=== PATIENT | male | born 1950 | race Caucasian/White ===

== ENCOUNTER 2017-07-07 18:58 | Emergency (ER) | payer MEDICARE, BC ==
[2017-07-07] MEDS ORDERED: Lidocaine 2% Jelly 10 ML Urojet MUCMEM ONE (19:48)
--- NOTE | 2017-07-07 19:55 | EDM.PDOC ---
ED HPI GENERAL MEDICAL PROBLEM - General Chief Complaint: Genitourinary Problem Stated Complaint: BIOPSY DONE ON PROSTATE BLADDER WONT EMPTY Time Seen by Provider: 07/07/17 19:40 Source of Information: Reports: Patient History Limitations: Reports: No Limitations - History of Present Illness INITIAL COMMENTS - FREE TEXT/NARRATIVE: 66-year-old male presents to the ED in acute urinary retention. Patient was seen by Dr. Smart urologist in [place] early this morning. He had 12 biopsies performed on his prostate due to elevated PSA to rule out cancer. Patient subtotally has not been able to void. He feels the strong urge to void and pass a few drops of either urine or blood. Right now he is very miserable be due to abdominal pain and cramps. Associated diffuse low back pain. Mild associated nausea. Unable to eat. No vomiting. Onset: Today Onset Date: 07/07/17 (Brent a biopsy performed at 0530 hrs. this morning in [facility].) Duration: Hour(s): (Has not been able to void since prostate biopsy was performed.) Location: Reports: Abdomen Quality: Reports: Ache (Diffuse lower abdominal pain with distention up to the umbilicus.), Other Severity: Severe (Intermittent sharp stabbing cramping colicky pain.) Improves with: Reports: None Worsens with: Reports: None Context: Reports: Other (Prostate biopsy performed earlier today.). Denies: Activity, Exercise, Lifting, Sick Contact Associated Symptoms: Reports: Nausea/Vomiting. Denies: Confusion, Chest Pain, Cough, cough w sputum, Diaphoresis, Fever/Chills, Headaches, Malaise, Rash, Seizure, Shortness of Breath, Syncope (Nausea without) Treatments VARNISH REMOVER: Reports: Acetaminophen Bladder Pain Score (Numeric/FACES): 8 - Related Data Allergies Allergy/AdvReac Type Severity Reaction Status Date / Time ragweed pollen Allergy Sneezing Verified 07/07/17 19:17 Past Medical History Genitourinary History: Reports: Prostate Disorder, Other (See Below) Other Genitourinary History: prostate biopsy -- - Past Surgical History HEENT Surgical History: Reports: Cataract Surgery Musculoskeletal Surgical History: Reports: Other (See Below) Other Musculoskeletal Surgeries/Procedures:: back surgery about 1980 d/t crushed vertebrae Social & Family History - Family History Family Medical History: Noncontributory - Tobacco Use Smoking Status *Q: Never Smoker - Caffeine Use Caffeine Use: Reports: Coffee, Tea - Recreational Drug Use Recreational Drug Use: No - Living Situation & Occupation Living situation: Reports: Occupation: Employed ED ROS GENERAL - Review of Systems Review Of Systems: See Below Constitutional: Reports: Weakness, Decreased Appetite. Denies: Fever, Chills, Malaise HEENT: Reports: No Symptoms, Glasses Respiratory: Reports: No Symptoms Cardiovascular: Reports: No Symptoms Endocrine: Reports: No Symptoms GI/Abdominal: Reports: Abdominal Pain (See history present illness) : Reports: Urinary Retention Musculoskeletal: Reports: Back Pain Skin: Reports: No Symptoms (Associated with the abdominal pain) Neurological: Reports: No Symptoms ED EXAM, RENAL/ - Physical Exam Exam: See Below Exam Limited By: No Limitations General Appearance: Alert, WD/WN, Moderate Distress (In obvious discomfort with distended abdomen. First a standard lying down makes it worse.) Eye Exam: Bilateral Eye: Normal Inspection Throat/Mouth: Normal Inspection, Normal Oropharynx Head: Atraumatic, Normocephalic Neck: Normal Inspection, Supple, Non-Tender, Full Range of Motion. No: Lymphadenopathy (L), Lymphadenopathy (R) Respiratory/Chest: No Respiratory Distress, Lungs Clear, Normal Breath Sounds Cardiovascular: Normal Peripheral Pulses, Regular Rate, Rhythm, No Edema, No Murmur GI/Abdominal: Normal Bowel Sounds, Soft, Non-Tender, No Organomegaly, No Abnormal Bruit, Distended (Abdomen is firm and distended and dull dull to percussion up to the umbilicus. Ultrasound reveals distended urinary bladder up to the umbilicus.), Tender (Moderate tenderness suprapubically up to the umbilicus.). No: Rigid, Rebound (Male) Exam: No Hernia, Other (Mild amount of blood noted at the usual meatus.) Back Exam: Normal Inspection, Full Range of Motion Extremities: Normal Inspection, Normal Range of Motion, Non-Tender, No Pedal Edema Neurological: Alert, Oriented, CN II-XII Intact, Normal Cognition Psychiatric: Normal Affect, Normal Mood Skin Exam: Warm, Dry, Intact, Normal Color, No Rash Course - Vital Signs Last Recorded V/S: Last Vital Signs Temp 36.6 C 07/07/17 19: Pulse 89 07/07/17 19:18 Resp 18 07/07/17 19:18 BP 184/106 H 07/07/17 19:18 Pulse Ox 97 07/07/17 19:18 - Orders/Labs/Meds Orders: Active Orders 24 hr Category Date Time Status Insert Nicole Catheter [Insert Urinary Catheter] [OM.PC] Care 07/07/17 20:00 Ordered Q24H Urinary Catheter Assessment [RC] ASDIRECTED Care 07/07/17 19:49 Active Meds: Medications Discontinued Medications Generic Name Dose Route Start Last Admin Trade Name Evelia PRN Reason Stop Dose Admin Levofloxacin 500 mg 07/07/17 20:34 07/07/17 21:15 Levaquin PO 07/07/17 20:35 500 mg ONETIME ONE Administration Lidocaine HCl 10 ml 07/07/17 19:48 07/07/17 19:55 Xylocaine 2% Jelly MUCMEM 07/07/17 19:49 10 ml ONETIME ONE Administration - Radiology Interpretation Free Text/Narrative:: 66-year-old male presents the ED with acute urinary retention following prostate biopsy performed earlier this morning in [place]. He has not voided since that time. Has a constant urge to need to void will pass a few drops of urine or blood. Abdominal examination reveals him to be distended and firm to palpation up to the umbilicus dullness to percussion. Abdominal ultrasound confirms this to be very full urinary bladder. Plan Nicole catheter to be placed with the use of Urojet. - Re-Assessments/Exams Free Text/Narrative Re-Assessment/Exam: 07/07/17 20:35: Drained approximately 1200 mils of kya-colored urine without any obvious blood clots. Plan is to leave the Nicole catheter in place until after his surgery on his shoulder is done on Friday this week. He is likely to go back into retention in particular prior to this. Suggest follow-up in the clinic next Friday to have the Nicole catheter removed. Swelling probably occurred from bleeding within the prostate tissue itself after biopsies this morning occluding the prostatic urethra. He did receive Levaquin 500 mg prophylactically this morning after procedure. I will send him home with another tablet from the ED to take first thing tomorrow morning. Departure - Departure Time of Disposition: 20:42 Disposition: Home, Self-Care 01 Condition: Fair Clinical Impression: Acute urinary retention - Discharge Information Instructions: Acute Urinary Retention, Male, [id number] Referrals: Jessika Moreno PA [Primary Care Provider] - Forms: ED Department Discharge Additional Instructions: Evaluation in the emergency room tonight in regards to inability to void since having prostate biopsy performed this morning. Examination quickly identified the anterior bladder was filled with urine clinically about 1200 mils on ultrasound. The catheter coud tip was therefore placed under local anesthetic. I advised his tube to remain in place until after your shoulder surgery is performed on Friday . high chance of going back into urinary retention after surgery on your shoulder. suggest leaving the catheter in until next Friday. Please phone and make an appointment to have it removed by her personal physician in the clinic on Friday. I will send you home with Levaquin 500 mg tablets retaken tomorrow morning to prevent any infections from occurring from multiple points mentation of the urinary tract this morning and again tonight. - My Orders Last 24 Hours: My Active Orders 07/07/17 19:49 Urinary Catheter Assessment [RC] ASDIRECTED 07/07/17 20:00 Insert Nicole Catheter [Insert Urinary Catheter] [OM.PC] Q24H - Assessment/Plan Last 24 Hours: My Active Orders 07/07/17 19:49 Urinary Catheter Assessment [RC] ASDIRECTED 07/07/17 20:00 Insert Nicole Catheter [Insert Urinary Catheter] [OM.PC] Q24H
[2017-07-07] MEDS ORDERED: Levofloxacin 250 MG Tab PO ONE (20:34)
== END 2017-07-07 21:15 | disposition home or self-care (01) ==
LOC: JD.ED 18:58
DX: R33.9 Retention of urine, unspecified (principal); Z98.890 Other specified postprocedural states; Z91.048 Other nonmedicinal substance allergy status
CPT/HCPCS: 51702; 99283; A9270

== ENCOUNTER 2017-07-11 17:45 | Emergency (ER) | payer MEDICARE, BC | END 2017-07-11 18:48 | disposition home or self-care (01) | LOC: JD.ED 17:45 | DX: Z53.21 Procedure and treatment not carried out due to patient leaving prior to being seen by health care provider (principal) | CPT/HCPCS: 99283 ==

== ENCOUNTER 2018-05-19 11:55 | Emergency (ER) | payer BC, MEDICARE ==
--- NOTE | 2018-05-19 13:34 | CT ---
CT abdomen and pelvis Technique: Multiple axial sections were obtained from above the dome of the diaphragm inferiorly through the pubic symphysis. Intravenous and oral contrast has not been given. Comparison: No prior CT imaging is available. Findings: Small nonobstructing calculus is noted within the upper left kidney measuring approximately 3 mm. 3 nonobstructing calculi are noted within the right kidney with largest right-sided calculus measuring 7 mm. No ureteral dilatation or ureteral stone is seen. Small portion of the visualized lung bases shows a small nodule within the left lung base measuring 3.5 mm. Second small subpleural nodule is noted within the right middle lobe measuring 3.8 mm. These nodules are most likely incidental. Cyst is noted within the left lobe of the liver measuring 5.6 cm in greatest dimension. Smaller cyst is noted within the anterior right lobe of the liver measuring 8 mm in size. No additional abnormality is seen within the liver. Small hiatal hernia is noted. Spleen appears within normal limits. Adrenal glands show no nodule. Pancreas is within normal limits. Gallbladder contains no calcified gallstones. Aorta shows atherosclerotic change without aneurysm. No retroperitoneal adenopathy or mesenteric abnormalities are seen. Appendix is seen which is normal in size. Prostate gland is slightly enlarged. No pelvic mass or adenopathy is seen. No free fluid or inflammatory change is identified. Bone window settings were reviewed which shows slight degenerative change scattered within the spine. Nothing acute is appreciated on bone window settings. Impression: 1. 2 small nodules within the lung bases believed to be incidental. 2. 2 cysts within the liver. 3. Nonobstructing calculi within both kidneys. No ureteral dilatation or ureteral stone is seen. 4. Other incidental findings as noted above. Diagnostic code #2
[2018-05-19] MEDS ORDERED: Levofloxacin 500 MG Tab PO ONE (14:04)
--- NOTE | 2018-05-19 14:12 | EDM.PDOC ---
ED HPI GENERAL MEDICAL PROBLEM - General Chief Complaint: Genitourinary Problem Stated Complaint: FREQUENT URINATION Time Seen by Provider: 05/19/18 12:10 Source of Information: Reports: Patient History Limitations: Reports: No Limitations - History of Present Illness INITIAL COMMENTS - FREE TEXT/NARRATIVE: 67 year old male is sent over from the walk-in clinic for concerns of urinary retention. Symptoms started over the last 1-2 days. States Friday night he was up urinating every 2 hours. He is reporting increased urinary frequency, urinary urgency, dysuria, feeling of incomplete bladder emptying and suprapubic discomfort. Denies any hematuria, diarrhea, constipation or abdominal pain. Reports a history of chronic low back pain, does not seem to be worse than normal. Reports a history of prostate hypertrophy, kidney stones and urinary retention. Currently on flomax. Walk-in clinic provider called report. Concerned about urinary retention. Feels he needs a bladder scan and they do not have the capabilities to preform that at the walk-in clinic. Patient had labs including a CMP, CBC and UA done at the clinic, results are with the patient. - Related Data Allergies Allergy/AdvReac Type Severity Reaction Status Date / Time ragweed pollen Allergy Sneezing Verified 05/19/18 12:01 Home Meds: Home Meds Finasteride 5 mg PO DAILY 05/19/18 [History] Montelukast [Singulair] 10 mg PO DAILY 05/19/18 [History] Rosuvastatin [Crestor] 5 mg PO DAILY 05/19/18 [History] Tamsulosin HCl [Flomax] 0.4 mg PO BID 05/19/18 [History] levoFLOXacin [Levaquin] 500 mg PO DAILY #13 tab 05/19/18 [Rx] Past Medical History Genitourinary History: Reports: Prostate Disorder, Other (See Below) Other Genitourinary History: prostate biopsy -- - Past Surgical History HEENT Surgical History: Reports: Cataract Surgery Musculoskeletal Surgical History: Reports: Other (See Below) Other Musculoskeletal Surgeries/Procedures:: back surgery about 1979 d/t crushed vertebrae Social & Family History - Family History Family Medical History: Noncontributory - Tobacco Use Smoking Status *Q: Never Smoker - Caffeine Use Caffeine Use: Reports: Coffee - Recreational Drug Use Recreational Drug Use: No - Living Situation & Occupation Living situation: Reports: Occupation: Employed ED ROS GENERAL - Review of Systems Review Of Systems: See Below Constitutional: Denies: Fever, Chills GI/Abdominal: Denies: Abdominal Pain, Constipation, Diarrhea : Reports: Dysuria, Frequency, Urgency. Denies: Flank Pain, Hematuria Musculoskeletal: Reports: Back Pain (chronic, no change ) ED EXAM, RENAL/ - Physical Exam Exam: See Below Exam Limited By: No Limitations General Appearance: Alert, WD/WN, No Apparent Distress Respiratory/Chest: No Respiratory Distress, Lungs Clear, Normal Breath Sounds Cardiovascular: Normal Peripheral Pulses, Regular Rate, Rhythm, No Murmur GI/Abdominal: Normal Bowel Sounds, Soft, Tender (suprapubic tenderness) (Male) Exam: Deferred (due to concerns over prostatitis) Neurological: Alert, Oriented, Normal Cognition Psychiatric: Normal Affect, Normal Mood Skin Exam: Warm, Dry, Normal Color Course - Vital Signs Last Recorded V/S: Last Vital Signs Temp 97.0 F 05/19/18 12:02 Pulse 71 05/19/18 12:02 Resp 16 05/19/18 12:02 BP 178/90 H 05/19/18 12:02 Pulse Ox 98 05/19/18 12:02 - Orders/Labs/Meds Meds: Medications Discontinued Medications Generic Name Dose Route Start Last Admin Trade Name Freq PRN Reason Stop Dose Admin Levofloxacin 500 mg 05/19/18 14:04 05/19/18 14:09 Levaquin PO 05/19/18 14:05 500 mg ONETIME ONE Administration - Radiology Interpretation Free Text/Narrative:: CT abdomen and pelvis Technique: Multiple axial sections were obtained from above the dome of the diaphragm inferiorly through the pubic symphysis. Intravenous and oral contrast has not been given. Comparison: No prior CT imaging is available. Findings: Small nonobstructing calculus is noted within the upper left kidney measuring approximately 3 mm. 3 nonobstructing calculi are noted within the right kidney with largest right-sided calculus measuring 7 mm. No ureteral dilatation or ureteral stone is seen. Small portion of the visualized lung bases shows a small nodule within the left lung base measuring 3.5 mm. Second small subpleural nodule is noted within the right middle lobe measuring 3.8 mm. These nodules are most likely incidental. Cyst is noted within the left lobe of the liver measuring 5.6 cm in greatest dimension. Smaller cyst is noted within the anterior right lobe of the liver measuring 8 mm in size. No additional abnormality is seen within the liver. Small hiatal hernia is noted. Spleen appears within normal limits. Adrenal glands show no nodule. Pancreas is within normal limits. Gallbladder contains no calcified gallstones. Aorta shows atherosclerotic change without aneurysm. No retroperitoneal adenopathy or mesenteric abnormalities are seen. Appendix is seen which is normal in size. Prostate gland is slightly enlarged. No pelvic mass or adenopathy is seen. No free fluid or inflammatory change is identified. Bone window settings were reviewed which shows slight degenerative change scattered within the spine. Nothing acute is appreciated on bone window settings. Impression: 1. 2 small nodules within the lung bases believed to be incidental. 2. 2 cysts within the liver. 3. Nonobstructing calculi within both kidneys. No ureteral dilatation or ureteral stone is seen. 4. Other incidental findings as noted above. - Re-Assessments/Exams Free Text/Narrative Re-Assessment/Exam: 05/19/18 14:06 Bladder scan showed no urine in bladder. Patient has been able to urinate on his own. No indication for catheter at this time. Labs sent over from [place] include a UA, which is unremarkable for a UTI, and a BMP, which shows a creatinine of 1.0 and a slightly elevated glucose of 105. CT obtained to rule out bladder stone and eval for protatis. I have reviewed the imaging with the patient. I am highly suspicious the patient has prostatitis causing his symptoms today. Will treat with antibiotics and close follow-u pin the clinic. Discharge instructions as documented. Departure - Departure Time of Disposition: 14:12 Disposition: Home, Self-Care 01 Condition: Fair Clinical Impression: Prostatitis - Discharge Information *PRESCRIPTION DRUG MONITORING PROGRAM REVIEWED*: No *COPY OF PRESCRIPTION DRUG MONITORING REPORT IN PATIENT MADIE: No Prescriptions: levoFLOXacin [Levaquin] 500 mg PO DAILY #13 tab Instructions: Prostatitis, [id number] Referrals: Pat Moreno PA [Primary Care Provider] - Forms: ED Department Discharge Additional Instructions: Follow-up with your PCP next week for a recheck of your symptoms. Take the levaquin as prescribed, one tab PO daily. First dose given in the ER, start your prescription tomorrow. Drink plenty of fluids. May take OTC tylenol or motrin as needed for discomfort. Please return to the ER should your symptoms change or worsen.
== END 2018-05-19 14:24 | disposition home or self-care (01) ==
LOC: JD.ED 11:55
DX: N41.9 Inflammatory disease of prostate, unspecified (principal); Z91.048 Other nonmedicinal substance allergy status; Z79.899 Other long term (current) drug therapy
CPT/HCPCS: 74176; 99284; A9270

== ENCOUNTER 2021-02-21 11:53 | Emergency (ER) | payer MEDICARE, BC ==
[2021-02-21] MEDS ORDERED: Sodium Chloride 0.9% 10 ML Syringe FLUSH PRN (12:15)
[2021-02-21] MEDS ORDERED: Ondansetron 4 MG/2 ML SDV IVPUSH ONE (12:43)
[2021-02-21] MEDS ORDERED: Ketorolac 30 MG/ML SDV IVPUSH ONE (12:43)
[2021-02-21] MEDS ORDERED: Sodium Chloride 0.9% 1,000 ML IV STA (12:43)
[2021-02-21] MEDS ORDERED: HYDROmorphone 0.5 MG/0.5 ML Syringe IVPUSH ONE (12:43)
--- NOTE | 2021-02-21 13:38 | EDM.PDOC ---
ED HPI GENERAL MEDICAL PROBLEM - General Chief Complaint: Flank Pain Stated Complaint: BACK PAIN Time Seen by Provider: 02/21/21 12:07 Source of Information: Reports: Patient, RN Notes Reviewed History Limitations: Reports: No Limitations - History of Present Illness INITIAL COMMENTS - FREE TEXT/NARRATIVE: Patient is a 70-year-old male presenting to the emergency department with complaints of right flank pain. Reports are not a.m. this morning, the pain began. He then proceeded to mow his lawn thinking that it would improve, however it has been getting progressively worse. Reports nausea with no vomiting. He took Tylenol with no relief. He does have a history of kidney stones many years ago and thinks that this may feel similar to his previous episodes. Denies any obvious blood in his urine. He has had no fever or chills. Denies any known injuries to his back. Right Flank Pain Score (Numeric/FACES): 9 - Related Data Allergies Allergy/AdvReac Type Severity Reaction Status Date / Time ragweed pollen Allergy Sneezing Verified 05/19/18 12:01 Home Meds: Home Meds Finasteride 5 mg PO DAILY 05/19/18 [History] Montelukast [Singulair] 10 mg PO DAILY 05/19/18 [History] Rosuvastatin [Crestor] 5 mg PO DAILY 05/19/18 [History] Tamsulosin HCl [Flomax] 0.4 mg PO BID 05/19/18 [History] Cetirizine [ZyrTEC] 10 mg PO DAILY 02/21/21 [History] Hydrocodone/Acetaminophen [Hydrocodone-Acetamin 5-325 mg] 1 each PO Q4H PRN #20 tablet 02/21/21 [Rx] Losartan [Cozaar] 25 mg PO DAILY 02/21/21 [History] Ondansetron [Zofran ODT] 4 mg PO Q6H PRN #10 tab.dis 02/21/21 [Rx] Past Medical History Cardiovascular History: Reports: High Cholesterol, Hypertension Genitourinary History: Reports: Prostate Disorder, Other (See Below) Other Genitourinary History: prostate biopsy -- - Infectious Disease History Infectious Disease History: Reports: None - Past Surgical History HEENT Surgical History: Reports: Cataract Surgery GI Surgical History: Reports: Colonoscopy Musculoskeletal Surgical History: Reports: Other (See Below) Other Musculoskeletal Surgeries/Procedures:: back surgery about 1979 d/t crushed vertebrae Social & Family History - Family History Family Medical History: No Pertinent Family History - Tobacco Use Tobacco Use Status *Q: Never Tobacco User - Caffeine Use Caffeine Use: Reports: Coffee - Recreational Drug Use Recreational Drug Use: No - Living Situation & Occupation Living situation: Reports: Occupation: Employed ED ROS GENERAL - Review of Systems Review Of Systems: Comprehensive ROS is negative, except as noted in HPI. ED EXAM, RENAL/ - Physical Exam Exam: See Below Exam Limited By: No Limitations General Appearance: Alert, WD/WN, No Apparent Distress Respiratory/Chest: No Respiratory Distress, Lungs Clear, Normal Breath Sounds, No Accessory Muscle Use, Chest Non-Tender Cardiovascular: Normal Peripheral Pulses, Regular Rate, Rhythm, No Edema, No Gallop, No JVD, No Murmur, No Rub GI/Abdominal: Normal Bowel Sounds, Soft, Non-Tender, No Organomegaly, No Distention, No Abnormal Bruit, No Mass Back Exam: Normal Inspection, Full Range of Motion. No: CVA Tenderness (L), CVA Tenderness (R) Neurological: Alert, Oriented, CN II-XII Intact, Normal Cognition, Normal Gait, Normal Reflexes, No Motor/Sensory Deficits Psychiatric: Normal Affect, Normal Mood Skin Exam: Warm, Dry, Intact, Normal Color, No Rash Course - Vital Signs Last Recorded V/S: Last Vital Signs Temp 98.5 F 02/21/21 12:15 Pulse 58 L 02/21/21 12:15 Resp 20 02/21/21 12:15 BP 161/76 H 02/21/21 12:15 Pulse Ox 99 02/21/21 12:15 - Orders/Labs/Meds Orders: Active Orders 24 hr Category Date Time Status Peripheral IV Care [RC] . DIRECTED Care 02/21/21 12:15 Active Abdomen Pelvis wo Cont [CT] Stat Exams 02/21/21 12:43 Taken Sodium Chloride 0.9% [Normal Saline] 1,000 ml Med 02/21/21 12:43 Active IV NOW Sodium Chloride 0.9% [Saline Flush] Med 02/21/21 12:15 Active 10 ml FLUSH ASDIRECTED PRN Peripheral IV Insertion Adult [OM.PC] Stat Oth 02/21/21 12:15 Ordered Medication Orders Sodium Chloride (Normal Saline) 1,000 mls @ 150 mls/hr IV NOW STA Stop: 02/21/21 19:22 Last Admin: 02/21/21 12:56 Dose: 150 mls/hr Documented by: [facility] Sodium Chloride (Sodium Chloride 0.9% 10 Ml Syringe) 10 ml FLUSH ASDIRECTED PRN PRN Reason: Keep Vein Open Last Admin: 02/21/21 12:40 Dose: 10 ml Documented by: [facility] Labs: Laboratory Tests 02/21/21 02/21/21 02/21/21 Range/Units 12:33 12:41 12:41 WBC 7.45 (4.23-9.07) K/mm3 RBC 4.59 L (4.63-6.08) M/mm3 Hgb 13.8 (13.7-17.5) gm/dl Hct 42.6 (40.1-51.0) % MCV 92.8 H (79.0-92.2) fl MCH 30.1 (25.7-32.2) pg MCHC 32.4 (32.2-35.5) g/dl RDW Std Deviation 46.7 H (35.1-43.9) fL Plt Count 230 (163-337) K/mm3 MPV 9.1 L (9.4-12.3) fl Neut % (Auto) 73.1 H (34.0-67.9) % Lymph % (Auto) 17.3 L (21.8-53.1) % [place] % (Auto) 8.7 (5.3-12.2) % Eos % (Auto) 0.5 L (0.8-7.0) Baso % (Auto) 0.3 (0.1-1.2) % Neut # (Auto) 5.44 H (1.78-5.38) K/mm3 Lymph # (Auto) 1.29 L (1.32-3.57) K/mm3 [place] # (Auto) 0.65 (0.30-0.82) K/mm3 Eos # (Auto) 0.04 (0.04-0.54) K/mm3 Baso # (Auto) 0.02 (0.01-0.08) K/mm3 Sodium 138 (136-145) mEq/L Potassium 4.3 (3.5-5.1) mEq/L Chloride 102 (98-107) mEq/L Carbon Dioxide 28 (21-32) mEq/L Anion Gap 12.3 (5-15) BUN 21 H (7-18) mg/dL Creatinine 1.4 H (0.7-1.3) mg/dL Est Cr Clr Drug Dosing 49.97 mL/min Estimated GFR (MDRD) 50 (>60) mL/min BUN/Creatinine Ratio 15.0 (14-18) Glucose 118 H (70-99) mg/dL Calcium 8.7 (8.5-10.1) mg/dL Total Bilirubin 1.0 (0.2-1.0) mg/dL AST 18 (15-37) U/L ALT 23 (16-63) U/L Alkaline Phosphatase 70 (46-116) U/L C-Reactive Protein <0.2 (<1.0) mg/dL Total Protein 7.4 (6.4-8.2) g/dl Albumin 3.9 (3.4-5.0) g/dl Globulin 3.5 gm/dL Albumin/Globulin Ratio 1.1 (1-2) Urine Color Yellow (Yellow) Urine Appearance Clear (Clear) Urine pH 5.5 (5.0-8.0) Ur Specific [place] > or = 1.030 (1.005-1.030) Urine Protein Trace H (Negative) Urine Glucose (UA) Negative (Negative) Urine Ketones 1+ H (Negative) Urine Occult Blood 2+ H (Negative) Urine Nitrite Negative (Negative) Urine Bilirubin Negative (Negative) Urine Urobilinogen 0.2 (0.2-1.0) Ur Leukocyte Esterase Negative (Negative) Urine RBC 0-5 (0-5) /hpf Urine WBC 0-5 (0-5) /hpf Ur Epithelial Cells 0-5 (0-5) /hpf Urine Bacteria Not seen (FEW) /hpf Urine Mucus Few (FEW) /hpf Meds: Medications Generic Name Dose Route Start Last Admin Trade Name Freq PRN Reason Stop Dose Admin Sodium Chloride 1,000 mls @ 150 mls/hr 02/21/21 12:43 02/21/21 12:56 Normal Saline IV 02/21/21 19:22 150 mls/hr NOW STA Administration Sodium Chloride 10 ml 02/21/21 12:15 02/21/21 12:40 Sodium Chloride 0.9% 10 Ml Syringe FLUSH 10 ml ASDIRECTED PRN Administration Keep Vein Open Discontinued Medications Generic Name Dose Route Start Last Admin Trade Name Evelia PRN Reason Stop Dose Admin Hydromorphone HCl 0.5 mg 02/21/21 12:43 02/21/21 12:57 Hydromorphone 0.5 Mg/0.5 Ml Syringe IVPUSH 02/21/21 12:44 0.5 mg ONETIME ONE Administration Ketorolac Tromethamine 30 mg 02/21/21 12:43 02/21/21 12:56 Ketorolac 30 Mg/Ml Sdv IVPUSH 02/21/21 12:44 30 mg ONETIME ONE Administration Ondansetron HCl 4 mg 02/21/21 12:43 02/21/21 12:56 Ondansetron 4 Mg/2 Ml Sdv IVPUSH 02/21/21 12:44 4 mg ONETIME ONE Administration - Re-Assessments/Exams Free Text/Narrative Re-Assessment/Exam: Patient is a 70-year-old male presenting to the emergency department with complaints of right flank pain. He has a history of kidney stones many years ago. Exam is unremarkable. He has no significant CVA tenderness or superficial tenderness of the right low back. History is suspicious for kidney stone however. I have ordered blood work, urinalysis, and noncontrast CT of the abdomen pelvis. I will start IV fluids, Zofran, Toradol, and Dilaudid. 02/21/21 13:50 Hematology significant for BUN 21, creatinine 1.4. Otherwise unremarkable. Patient's GFR is 50 which is fairly consistent with his previous visits. Urinalysis shows 2+ occult blood as well as 1+ ketones negative for infection. CT results are pending. 02/21/21 14:01 CT scan of the abdomen pelvis shows a 9.5 mm obstructing ureteral calculus in the distal right ureter. Given the size of the stone, patient will likely not be able to pass it on his own. His urologist is Dr. Mckoy. Recommend contacting him today to set up an appointment his next available visit. I have pushed the CT images to [facility] in [place]. We will send him home with a urine strainer, Zofran for nausea, and hydrocodone with Tylenol for pain. He is currently on Flomax and finasteride. Discussed return precautions. Discharge instructions as documented. Departure - Departure Time of Disposition: 14:01 Disposition: Home, Self-Care 01 Condition: Good Clinical Impression: Kidney stone on right side - Discharge Information *PRESCRIPTION DRUG MONITORING PROGRAM REVIEWED*: Yes *COPY OF PRESCRIPTION DRUG MONITORING REPORT IN PATIENT MADIE: No Prescriptions: Hydrocodone/Acetaminophen [Hydrocodone-Acetamin 5-325 mg] 1 each PO Q4H PRN #20 tablet PRN Reason: Pain Ondansetron [Zofran ODT] 4 mg PO Q6H PRN #10 tab.dis PRN Reason: Nausea/Vomiting Instructions: Kidney Stones, [id number] Referrals: Caitlyn Padgett MD [Primary Care Provider] - Chris Mckoy MD [Ordering Only Provider] - Forms: ED Department Discharge Additional Instructions: You were seen in the emergency department today for right low back pain. Work- up included blood work, urinalysis, and CT scan. Results of your work-up show that you have a 9.5 mm obstructing kidney stone in your right ureter. This is the cause of your pain. While in the ER, you received IV fluids, pain medications and nausea medication. You have been sent home with a urine strainer. Strain your urine each time you go. Given the size of the stone, you will likely not pass it on your own. Recommend contacting your urologist, Dr. Mckoy, to set up an appointment at his next available visit. Your CT images have been sent to [facility] in [place] so that he may view them. For pain management, recommend routine ibuprofen. For pain not relieved by this, a prescription for hydrocodone with Tylenol has been provided. Uses only as prescribed. You have also been prescribed Zofran that you may use as needed for pain. If you experience any new or worsening symptoms of concern, please do not hesitate to return to the emergency department for reevaluation. Sepsis Event Note (ED) - Focused Exam Vital Signs: Vital Signs Temp Pulse Resp BP Pulse Ox 02/21/21 12:15 98.5 F 58 L 20 161/76 H 99 - My Orders Last 24 Hours: My Active Orders 02/21/21 12:15 Peripheral IV Care [RC] . DIRECTED Sodium Chloride 0.9% [Saline Flush] 10 ml FLUSH ASDIRECTED PRN Peripheral IV Insertion Adult [OM.PC] Stat 02/21/21 12:43 Abdomen Pelvis wo Cont [CT] Stat Sodium Chloride 0.9% [Normal Saline] 1,000 ml IV NOW - Assessment/Plan Last 24 Hours: My Active Orders 02/21/21 12:15 Peripheral IV Care [RC] . DIRECTED Sodium Chloride 0.9% [Saline Flush] 10 ml FLUSH ASDIRECTED PRN Peripheral IV Insertion Adult [OM.PC] Stat 02/21/21 12:43 Abdomen Pelvis wo Cont [CT] Stat Sodium Chloride 0.9% [Normal Saline] 1,000 ml IV NOW
--- NOTE | 2021-02-21 15:46 | CT ---
CT abdomen and pelvis Technique: Multiple axial sections were obtained from above the dome of the diaphragm inferiorly to the pubic symphysis. Intravenous and oral contrast were not utilized. Study has been performed as a ureteral stone protocol. Comparison: Prior CT abdomen and pelvis study of 05/19/18. Findings: Small nodules are seen within both lung bases which appear stable from previous exam and are therefore benign. Inflammatory change is noted around the right kidney. Right ureter is dilated down to the pelvis. These findings are caused by an obstructing right ureteral calculus measuring approximately 1.0 cm in size. This stone occurs approximately 4.5 cm from the UVJ. Very minimal nonobstructing stone is noted within the right kidney. Two small nonobstructing calculi are noted within the left kidney. Cyst is noted within the left lobe of the liver measuring 6.2 cm. Additional cyst is noted within the right lobe of the liver measuring 9 mm. Third small cyst noted within the left lobe measuring 7 mm. These findings are stable from prior CT exam. Adrenal glands show no nodule. Spleen size is normal. Pancreas shows no discrete abnormality. Gallbladder contains no calcified gallstones. Abdominal aorta shows atherosclerotic calcification which continues into the iliac vessels with no aneurysm. No retroperitoneal adenopathy or mesenteric abnormalities are seen. Appendix is seen which is normal. Prostate gland is somewhat enlarged which is stable in appearance from previous exam. No pelvic mass or adenopathy is seen. Bone window settings were reviewed which show diffuse degenerative change throughout the spine. There is mild anterior wedge deformity of L1 which appears stable from prior study. Impression: 1. Several small nonobstructing calculi within both kidneys. Right ureter is dilated with surrounding inflammatory change around the right kidney. These findings are caused by an obstructing calculus measuring approximately 1.0 cm within the distal right ureter which occurs approximately 4.5 cm from the UVJ. 2. Other stable findings as described above which are unchanged from prior CT abdomen and pelvis study. Diagnostic code #3 I agree with preliminary report from [facility], finalized on 02/21/21, 2:50 PM CDT, code 1
== END 2021-02-21 14:18 | disposition home or self-care (01) ==
LOC: JD.ED 11:53
DX: N20.2 Calculus of kidney with calculus of ureter (principal); E78.00 Pure hypercholesterolemia, unspecified; I10 Essential (primary) hypertension; Z91.09 Other allergy status, other than to drugs and biological substances; Z79.899 Other long term (current) drug therapy
CPT/HCPCS: 36415; 74176; 80053; 81001; 85025; 86140; 96374; 96375; 99284; J1170; J1885; J2405; J7030

== ENCOUNTER 2023-05-06 08:28 | Emergency (ER) | payer MEDICARE, BC | END 2023-05-06 10:41 | disposition home or self-care (01) | LOC: JD.ED 08:28 | DX: R33.9 Retention of urine, unspecified (principal); I10 Essential (primary) hypertension; E78.00 Pure hypercholesterolemia, unspecified; Z91.048 Other nonmedicinal substance allergy status; Z79.899 Other long term (current) drug therapy | CPT/HCPCS: 51702; 99282; 99283 ==

== ENCOUNTER 2023-05-17 06:40 | Emergency (ER) | payer MEDICARE, BC ==
[2023-05-17 07:39] LABS: APPEARANCE,URINE CLEAR (Clear); BILIRUBIN,URINE NEGATIVE (Negative); COLOR,URINE YELLOW (Yellow); GLUCOSE,URINE NEGATIVE (Negative); KETONES,URINE 2+ (Negative); LEUKOCYTE ESTERASE,URINE NEGATIVE (Negative); NITRITE,URINE NEGATIVE (Negative); OCCULT BLOOD,URINE NEGATIVE (Negative); PH,URINE 6.5 (5.0-8.0); PROTEIN,URINE NEGATIVE (Negative); UROBILINOGEN,URINE 0.2 (0.2-1.0)
== END 2023-05-17 08:15 | disposition home or self-care (01) ==
LOC: JD.ED 06:40
DX: R33.9 Retention of urine, unspecified (principal); I10 Essential (primary) hypertension; E78.00 Pure hypercholesterolemia, unspecified; Z86.16 Personal history of COVID-19; Z79.899 Other long term (current) drug therapy; Z91.048 Other nonmedicinal substance allergy status
CPT/HCPCS: 51702; 51798; 81003; 99283